=== PATIENT | female | born 1940 | race Caucasian/White ===

== ENCOUNTER 2019-11-16 10:26 | Emergency (ER) | payer OTHER ==
[~2019-11-16] VITALS: Ht 162.6 cm; Wt 69.8 kg
[~2019-11-16 10:26] MED LIST: AROMASIN25 MG OR; COLACE 100 MG100 MG OR; ENOXAPARIN40 MG/0.4 SC; FLOVENT DISKU100 MCG IH; ROXICODONE5 M1 OR; [UNRECOGNIZED DRUG - REMARK]
[2019-11-16] MEDS ORDERED: [UNRECOGNIZED DRUG - REMARK] (11:41)
[2019-11-16] MEDS ORDERED: SIMVASTATIN80 MG PO (11:42)
[2019-11-16 12:08] VITALS: BP 137/85
== END 2019-11-16 12:10 | disposition home or self-care (01) ==
LOC: M.ERS 10:26
DX: S80.02XA Contusion of left knee, initial encounter (principal); S00.81XA Abrasion of other part of head, initial encounter; J45.909 Unspecified asthma, uncomplicated; Z85.3 Personal history of malignant neoplasm of breast; Z90.12 Acquired absence of left breast and nipple; Z88.2 Allergy status to sulfonamides; W01.0XXA Fall on same level from slipping, tripping and stumbling without subsequent striking against object, initial encounter; Y93.89 Activity, other specified; Y92.89 Other specified places as the place of occurrence of the external cause; Y99.8 Other external cause status

== ENCOUNTER 2019-11-19 08:14 | Emergency (ER) | payer OTHER ==
[~2019-11-19] VITALS: Ht 162.6 cm; Wt 68.0 kg
[~2019-11-19 08:14] MED LIST changes: +SIMVASTATIN80 MG PO; +[UNRECOGNIZED DRUG - REMARK]
[2019-11-19 09:00] LABS: INFLUENZA A ANTIGEN Negative (Negative); INFLUENZA B ANTIGEN Negative (Negative)
[2019-11-19] MEDS ORDERED: IBUPROFEN 600600 M1 PO (09:26)
[2019-11-19] MEDS ORDERED: Magic Mouthwash SWISH&SPIT (09:26)
[2019-11-19 09:33] VITALS: BP 160/79
== END 2019-11-19 09:34 | disposition home or self-care (01) ==
LOC: M.ERS 08:14
PROVIDERS: Personal Emergency Response Attendant
DX: J06.9 Acute upper respiratory infection, unspecified (principal); J45.909 Unspecified asthma, uncomplicated; Z88.2 Allergy status to sulfonamides; Z85.3 Personal history of malignant neoplasm of breast

== ENCOUNTER 2020-01-02 13:39 | Inpatient (IN) | payer OTHER ==
[~2020-01-02] VITALS: Ht 162.6 cm; Wt 68.0 kg
[~2020-01-02 13:39] MED LIST changes: -FLOVENT DISKU100 MCG IH; +FLOVENT DISKU100 MCG INH; +IBUPROFEN 600600 M1 PO; +Magic Mouthwash SWISH&SPIT; -SIMVASTATIN80 MG PO; +ZOCOR 20 MG TAB20 M1 PO
[2020-01-02 13:45] VITALS: BP 154/84
[2020-01-02] MEDS ORDERED: LEVO-T50 MCG PO (14:02)
[2020-01-02] MEDS ORDERED: VITAMIN D22000 UNIT PO (14:02)
[2020-01-02] MEDS ORDERED: EVISTA60 MG PO (14:02)
[2020-01-02] MEDS ORDERED: OMEPRAZOLE 20 M20 M1 PO (14:02)
[2020-01-02] MEDS ORDERED: CALCIUM + D3 E1 EACH PO (14:03)
[2020-01-02] MEDS ORDERED: FISH OIL 1,001000 M3 PO (14:03)
[2020-01-02] MEDS ORDERED: VITAMIN D32000 UNI2 PO (14:04)
[2020-01-02] MEDS ORDERED: VITAMIN C500 M1 PO (14:04)
[2020-01-02] MEDS ORDERED: ICAPS TABLET1 EACH PO (14:04)
[2020-01-02] MEDS ORDERED: PROAIR HFA8.5 GM INH (14:04)
[2020-01-02 14:50] LABS: ABSOLUTE EOSINOPHILS 0.1 thou/uL (0.0-0.7); ABSOLUTE LYMPHOCYTES 1.1 thou/uL (0.8-5.3); ABSOLUTE MONOCYTES 0.6 thou/uL (0.0-1.2); ABSOLUTE NEUTROPHILS 5.6 thou/uL (1.6-8.1); BASOPHILS 0.4 %; EOSINOPHILS 1.2 %; HEMATOCRIT 40.4 % (37.0-47.0); LYMPHOCYTES 14.7 %; MCH 32.7 pg (26.0-34.0); MCHC 34.6 g/dL (28.0-37.0); MCV 94.5 fL (80.0-100.0); MONOCYTES 8.1 %; MPV 6.9 fl. (7.2-11.1); NUCLEATED RBCS 0 /100WBC; PLATELET COUNT* 287 thou/uL (150-400); POLYS 75.6 %; RBC 4.28 mil/uL (4.20-5.00); RDW-CV 13.3 % (10.5-14.5); WBC 7.4 thou/uL (4.0-11.0)
[2020-01-02 14:59] LABS: APTT 22.7 Seconds (25.0-31.3); PROTIME 10.7 Seconds (9.20-11.50)
[2020-01-02 15:02] LABS: URINE BILIRUBIN NEGATIVE (Negative); URINE BLOOD TRACE (Negative); URINE CLARITY CLEAR; URINE COLOR YELLOW; URINE GLUCOSE-RANDOM NEGATIVE (Negative); URINE KETONES TRACE (Negative); URINE LEUKOCYTES-REFLEX TRACE (Negative); URINE PROTEIN TRACE (Negative); URINE SPECIFIC GRAVITY >= 1.030 (1.005-1.030); URINE UROBILINOGEN 0.2 E.U./dl (0.2-1.0)
[2020-01-02 15:04] LABS: URINE NITRITE-REFLEX POSITIVE (Negative)
[2020-01-02 15:06] LABS: CALCIUM 9.4 mg/dL (8.5-10.1); CREATININE 0.9 mg/dL (0.6-1.3)
[2020-01-02 15:09] LABS: BACTERIA-REFLEX >30 Many /HPF (None Seen); SQUAMOUS 4-10 Moderate /LPF (0-3)
[2020-01-02 15:10] LABS: CRYSTALS None Seen /LPF (None Seen); HYALINE CASTS 4-10 Moderate /LPF (None Seen); MUCUS None Seen strn/LPF (None Seen); URINE RBC 0-2 Rare /HPF (0-2); URINE WBC-REFLEX 6-15 Few /HPF (0-5)
[2020-01-02 15:20] LABS: ALBUMIN 3.9 g/dL (3.4-5.0); CK-MB MASS 3.2 ng/mL (<0.5-3.6); TOTAL BILIRUBIN 0.3 mg/dL (<0.1-1.0); TOTAL PROTEIN 8.2 g/dL (6.4-8.2)
[2020-01-02 18:06] VITALS: BP 132/60
[2020-01-02 18:20] VITALS: BP 145/66
[2020-01-02 19:11] VITALS: BP 146/79
--- NOTE | 2020-01-02 22:46 | NUR ---
PATIENT ARRIVED ON DAY SHIFT AT 1830 PER REPORT FROM DAY RN. RESTING QUIETLY IN BED. IV FLUIDS INFUSING. AND DAUGHTER WERE HERE AT SHIFT CHANGE VISITING. DENIES DISCOMFORT. CALL LIGHT WITHIN REACH.
[2020-01-03 04:31] LABS: HEMATOCRIT 32.7 % (37.0-47.0); MCH 32.9 pg (26.0-34.0); MCHC 34.8 g/dL (28.0-37.0); MCV 94.4 fL (80.0-100.0); MPV 6.8 fl. (7.2-11.1); RBC 3.46 mil/uL (4.20-5.00); RDW-CV 13.3 % (10.5-14.5); WBC 7.2 thou/uL (4.0-11.0)
[2020-01-03 04:40] LABS: HEMOGLOBIN 11.4 gm/dL (12.0-15.0)
[2020-01-03 04:44] LABS: CALCIUM 7.6 mg/dL (8.5-10.1); CREATININE 0.7 mg/dL (0.6-1.3); MAGNESIUM 1.5 mg/dL (1.8-2.4); POTASSIUM 3.5 mmol/L (3.5-5.1)
--- NOTE | 2020-01-03 05:07 | NUR ---
HAD DIFFICULTY GOING TO SLEEP DUE TO THE IV IN LEFT WRIST BEING POSITIONAL AND CAUSING THE IV PUMP TO ALARM OFTEN. PLACED A NEW IV IN RIGHT HAND AND PATIENT WAS THEN ABLE TO GET TO SLEEP. INITIALLY PATIENT REFUSED TO USE BEDSIDE COMMODE. GAIT WEAK AND UNSTEADY. PERSUADED PATIENT TO USE BEDSIDE COMMODE IS THE CURRENT ORDER. HOURLY ROUNDING IN PROGRESS.
[2020-01-03 07:43] VITALS: BP 148/63
[2020-01-03 12:19] LABS: CREATININE 0.7 mg/dL (0.6-1.3); MAGNESIUM 3.4 mg/dL (1.8-2.4); POTASSIUM 3.5 mmol/L (3.5-5.1)
[2020-01-03] MEDS ORDERED: AUGMENTIN250 MG/5 M PO (14:44)
[2020-01-03 14:45] VITALS: BP 148/63
--- NOTE | 2020-01-03 15:29 | NUR ---
ASSUMED CARE OF PT AROUND 0730 THIS AM.REFER TO ASSESSMENT. PT A&OX4 THIS AM. NO CONFUSION NOTED. PT SEEN AND CLEARED BY PT/OT FOR SAFE DC HOME. PT AND FAMILY REQUESTING TO GO HOME. PHYSICIAN CONSULTED NEUROLOGY. NEUROLOGY OK WITH DC HOME. PT TO FOLLOW UP WITH OWN NEUROLOGY GROUP AND PRIMARY CARE PHYSICIAN POST DC. NO OTHER CONCERNS AT THIS TIME.
--- NOTE | 2020-01-07 13:55 | EKG ---
[place] [address] ELECTROCARDIOGRAM REPORT Name: EMMA PLATATHEODORE Thorne Room: [address] IN [facility]#: [id number] Admission: 01/02/20 Attend Phys: Constantino Motley Discharge: 01/03/20 Date of : 44 Date of Service: 01/02/20 1442 Report #: [id number] THIS REPORT FOR: cc: Emanuel Palacios MD, MD, MD [facility] ~ THIS REPORT FOR: //name// [facility] ED Test Date: 2020-01-02 Test Time: 14:42:50 Pat Name: JAMMIE PLATA Department: Room: Gender: F Sales Rep: : 1940 Requested By: David Salmon Order Number: [id number] MD: Emanuel Arriaga Measurements Intervals [place] Rate: 119 P: 54 AK: 159 QRS: -41 QRSD: 88 T: 4 QT: 313 QTc: 441 Interpretive Statements Sinus tachycardia Probable left atrial enlargement Low voltage, precordial leads Left ventricular hypertrophy Anterior Q waves, possibly due to LVH Baseline wander in lead(s) III,aVF Compared to ECG 09/22/2010 08:59:42 Left ventricular hypertrophy now present Q waves now present Electronically Signed On 01-02-2020 15:19:28 HOSPITALITY INTERN by Emanuel Arriaga [email or web address] <ELECTRONICALLY SIGNED> By: Emanuel Arriaga MD, [facility] 01/02/20 1519 1442 1442 Emanuel Arriaga MD, [facility] /EPI
== END 2020-01-03 15:25 | disposition home or self-care (01) | DRG 871 ==
LOC: M.ERS 13:39 → M.TBA-ER 15:23 → M.ORTHSURG 15:23
PROVIDERS: Emergency Medicine Emergency Medical Services; ADMIT Family Medicine
DX: A41.9 Sepsis, unspecified organism (principal); N17.0 Acute kidney failure with tubular necrosis; G93.41 Metabolic encephalopathy; N39.0 Urinary tract infection, site not specified; E87.2 Acidosis; E83.42 Hypomagnesemia; R26.89 Other abnormalities of gait and mobility; J45.909 Unspecified asthma, uncomplicated; Z79.899 Other long term (current) drug therapy; Z88.2 Allergy status to sulfonamides; Z72.89 Other problems related to lifestyle; Z85.3 Personal history of malignant neoplasm of breast; Z92.21 Personal history of antineoplastic chemotherapy; Z92.3 Personal history of irradiation

== ENCOUNTER 2020-08-25 16:01 | Emergency (ER) | payer OTHER ==
[~2020-08-25] VITALS: Ht 162.6 cm; Wt 70.3 kg
[~2020-08-25 16:01] MED LIST changes: +AUGMENTIN250 MG/5 M PO; +CALCIUM + D3 E1 EACH PO; +EVISTA60 MG PO; +FISH OIL 1,001000 M3 PO; +ICAPS TABLET1 EACH PO; +LEVO-T50 MCG PO; +OMEPRAZOLE 20 M20 M1 PO; +PROAIR HFA8.5 GM INH; +VITAMIN C500 M1 PO; +VITAMIN D22000 UNIT PO; +VITAMIN D32000 UNI2 PO
[2020-08-25] MEDS ORDERED: NORCO 5-325 TA1 EAC2 PO (17:32)
[2020-08-25] MEDS ORDERED: IBUPROFEN 800800 M1 PO (17:32)
[2020-08-25 17:52] VITALS: BP 173/88
== END 2020-08-25 17:55 | disposition home or self-care (01) ==
LOC: M.ERS 16:01
DX: S22.42XA Multiple fractures of ribs, left side, initial encounter for closed fracture (principal); J45.909 Unspecified asthma, uncomplicated; Z79.899 Other long term (current) drug therapy; Z88.2 Allergy status to sulfonamides; W18.39XA Other fall on same level, initial encounter; Y93.89 Activity, other specified; Y92.89 Other specified places as the place of occurrence of the external cause; Y99.8 Other external cause status

== ENCOUNTER 2021-04-05 14:04 | Observation (INO) | payer OTHER ==
[~2021-04-05] VITALS: Ht 162.6 cm; Wt 71.8 kg
--- NOTE | ~2021-04-05 | EEG ---
[address] [address] EEG STUDY REPORT Name: JAMMIE PLATA [address] [id number] Admission: 04/05/21 Attend Phys: Suzi Wilson Discharge: Date of : 44 Report #: [id number] THIS REPORT FOR: cc: Berenice Murrieta Jennifer Ann RNP Khosla, Parveen K. MD ~ DOC #: [id number] Keshav Haji MD DATE OF SERVICE: 04/06/2021 This patient had an episode of syncope. EEG was done by placing the electrode by standard 10-20 system of electrode placement. Both referential and sequential montages were used for recording. Background activity in this patient about 8 Hz and 15 microvolt, it is a low voltage activity, which is intermixed with ____. Photic stimulation is unremarkable. The patient went to sleep that is associated with bilateral slowing and vertex sharp waves. Throughout the record, no active epileptiform activity was noticed. IMPRESSION: This patient's EEG is intermixed with theta range slowing on both sides. That is a nonspecific finding which can occur with encephalopathy, effect of psychotropic medication, dementia, etc. Clinical correlation is recommended. Keshav Haji MD PK/IGOR/JAMIE By: [id number] Haji MD /tacho
--- NOTE | ~2021-04-05 | CON ---
[address] [address] CONSULTATION Name: JAMMIE PLATA Room: [address] Polly Palomo#: [id number] Admission: 04/05/21 Attend Phys: Suzi Wilson Discharge: Date of : 44 Report #: [id number] THIS REPORT FOR: cc: Berenice Murrieta Jennifer Ann RNP Khosla, Parveen K. MD ~ DOC #: [id number] Keshav Haji MD DATE OF CONSULTATION: 04/06/2021 HISTORY OF PRESENT ILLNESS: This is a 80-year-old female patient who was evaluated by me for any neurological etiology for the patient's syncope. The patient said she was sitting. She was having some bowel problems for some time. In fact, she said she underwent EGD and colonoscopy because of those bowel symptoms and she passed out. This lasted just for a few seconds. There were some jerking associated with it. She did not have any paralysis after this happened. She feels back to her baseline. REVIEW OF SYSTEMS: A 14-point review of system is positive for multiple problems which are predominantly GI. She denies any prior history of stroke. She is not complaining of any eye, ENT, cardiac, respiratory, GI, , musculoskeletal, constitutional, dermatological, hematological, psychiatric, throat or allergic symptom associated with present symptomatology. PAST MEDICAL HISTORY: Negative for these kind of episodes. FAMILY HISTORY: Unremarkable. There is no epilepsy in the family. SOCIAL HISTORY: She drinks 1-2 alcoholic drink a day. She does not smoke. PHYSICAL EXAMINATION: She is alert, responsive, able to follow simple and complex commands. Her speech, concentration, fund of knowledge and memory is at her baseline. Cranial nerve examination II-XII is unremarkable. She had some back issues in the past, but allowing for that it does not look like neuromuscular examination for motor, sensory, reflex and tone shows any asymmetry. There is no cerebellar sign. There is no papilledema. There is no carotid bruit. She is a well-built individual. She does not have any dysmorphic features of face. Hearing and vision looks adequate. Pulses in the upper extremities are nicely palpable. Cardiac examinations appear noncontributory. Respiratory examination does not show any respiratory difficulty or rhonchi. Blood pressure is 145/73, respirations 18, pulse is 95, temperature is 100.2, which is slightly elevated, but that is the first reading here. She has no thyroid mass and there is no carotid bruit. IMPRESSION: The episode is most likely a vasovagal spell. [place] [address] CONSULTATION Name: SHERLYNEMMA MARIEETHEODORE Thorne Room: [address] M.RDaniel#: [id number] Admission: 04/05/21 Attend Phys: Suzi Wilson Discharge: Date of : 44 Report #: [id number] gastrointestinal symptoms and it occurred then. Her EEG is unremarkable. Her BUN and creatinine is good and has always been good. I will get a CT angiogram done mainly to look for any vertebral artery problems, but main workup and management is going to be by Cardiology who is on the case. Thank you very much for this referral. Keshav Haji MD PK/PAR By: [id number] Haji MD /nt
[~2021-04-05 14:04] MED LIST changes: +IBUPROFEN 800800 M1 PO; +NORCO 5-325 TA1 EAC2 PO
[2021-04-05 14:12] VITALS: BP 131/87
[2021-04-05 14:38] LABS: ABSOLUTE BASOPHILS 0.1 thou/uL (0.0-0.2); ABSOLUTE EOSINOPHILS 0.1 thou/uL (0.0-0.7); ABSOLUTE MONOCYTES 0.5 thou/uL (0.0-1.2); ABSOLUTE NEUTROPHILS 6.6 thou/uL (1.6-8.1); BASOPHILS 0.7 %; EOSINOPHILS 1.2 %; HEMATOCRIT 40.3 % (37.0-47.0); HEMOGLOBIN 13.8 gm/dL (12.0-15.0); LYMPHOCYTES 12.1 %; MCH 32.7 pg (26.0-34.0); MCHC 34.3 g/dL (28.0-37.0); MCV 95.3 fL (80.0-100.0); MONOCYTES 6.2 %; MPV 6.5 fl. (7.2-11.1); NUCLEATED RBCS 0 /100WBC; PLATELET COUNT* 295 thou/uL (150-400); POLYS 79.8 %; RBC 4.22 mil/uL (4.20-5.00); RDW-CV 13.9 % (10.5-14.5); WBC 8.3 thou/uL (4.0-11.0)
[2021-04-05 14:45] LABS: CALCIUM 9.6 mg/dL (8.5-10.1); CREATININE 0.7 mg/dL (0.6-1.3); POTASSIUM 3.8 mmol/L (3.5-5.1)
[2021-04-05 14:48] LABS: APTT 23.1 Seconds (25.0-31.3); PROTIME 10.9 Seconds (9.20-11.50)
[2021-04-05 14:49] LABS: ALBUMIN 4.2 g/dL (3.4-5.0); TOTAL BILIRUBIN 0.5 mg/dL (<0.1-1.0); TOTAL PROTEIN 8.1 g/dL (6.4-8.2)
--- NOTE | 2021-04-05 15:47 | EKG ---
[place] [address] ELECTROCARDIOGRAM REPORT Name: JAMMIE PLATA Room: [address]R.#: [id number] Admission: 04/05/21 Attend Phys: Tyson Hemphill Discharge: Date of : 44 Date of Service: 04/05/21 1427 Report #: [id number] THIS REPORT FOR: //name// [facility] ED Test Date: 2021-04-05 Test Time: 14:27:19 Pat Name: JAMMIE PLATA Department: Room: [facility] Gender: F Neuropsychology Director: CCD : 1940 Requested By: Mendel Byers Order Number: [id number] MD: Maurice Small Measurements Intervals [place] Rate: 91 P: 44 OR: 165 QRS: -47 QRSD: 91 T: 21 QT: 370 QTc: 456 Interpretive Statements Sinus rhythm Inferior infarct, old Consider anterior infarct Compared to ECG 01/02/2020 14:42:50 Myocardial infarct finding now present Sinus tachycardia no longer present Left ventricular hypertrophy no longer present Q waves no longer present Electronically Signed On 04-05-2021 15:46:57 CDT by Maurice Small [email or web address] <ELECTRONICALLY SIGNED> By: Maurice Small MD, [facility] 04/05/21 1546 1427 1427 Maurice Small MD, [facility] /EPI
[2021-04-05 15:52] LABS: URINE BILIRUBIN NEGATIVE (Negative); URINE BLOOD NEGATIVE (Negative); URINE CLARITY CLEAR; URINE COLOR YELLOW; URINE GLUCOSE-RANDOM NEGATIVE (Negative); URINE KETONES NEGATIVE (Negative); URINE NITRITE-REFLEX NEGATIVE (Negative); URINE PROTEIN NEGATIVE (Negative); URINE SPECIFIC GRAVITY <= 1.005 (1.005-1.030); URINE UROBILINOGEN 0.2 E.U./dl (0.2-1.0)
[2021-04-05] MEDS ORDERED: EXCEDRIN CAPLE1 EACH PO (15:53)
[2021-04-05 15:58] LABS: URINE LEUKOCYTES-REFLEX 2+ (Negative)
[2021-04-05 15:59] LABS: CASTS None Seen /LPF (None Seen); CRYSTALS None Seen /LPF (None Seen); SQUAMOUS 0-3 Few /LPF (0-3); URINE RBC 0-2 Rare /HPF (0-2); URINE WBC-REFLEX 0-5 Rare /HPF (0-5)
--- NOTE | 2021-04-05 18:20 | NUR ---
admit from er to via cart 1 assist to bed telephone report given prior to arrival patient oriented to and call light
[2021-04-05 18:22] VITALS: BP 132/55
[2021-04-05 18:25] VITALS: BP 137/64
[2021-04-05 20:29] VITALS: BP 127/55
[2021-04-06 00:39] VITALS: BP 146/56
[2021-04-06] MEDS ORDERED: ATORVASTATIN CA80 MG PO (02:48)
[2021-04-06] MEDS ORDERED: CARVEDILOL12.5 MG PO (02:49)
[2021-04-06] MEDS ORDERED: ZETIA10 MG PO (02:49)
[2021-04-06 04:00] VITALS: BP 140/48
--- NOTE | 2021-04-06 05:28 | NUR ---
PT ADMITTED TO ROOM 211 DURING THIS SHIFT; VSS, A+OX4, ROOM AIR, UP SBA TO COMODE, REPORTS PAIN. SHE IS ABLE TO COMMUNICATE HER NEEDS TO STAFF EFFECTIVELY. CURRENT PAIN MEDICATION REGIMEN HAS BEEN ADEQUATE FOR CONTROLLING HER PAIN UP TO THIS TIME.
[2021-04-06 06:03] LABS: HEMOGLOBIN ND gm/dL (12.0-15.0); RBC ND mil/uL (4.20-5.00); WBC ND thou/uL (4.0-11.0)
[2021-04-06 06:04] LABS: CALCIUM 8.5 mg/dL (8.5-10.1); CREATININE 0.6 mg/dL (0.6-1.3); POTASSIUM 3.2 mmol/L (3.5-5.1)
[2021-04-06 06:04] LABS: HEMATOCRIT ND % (37.0-47.0); MCV ND fL (80.0-100.0)
[2021-04-06 06:05] LABS: MCH ND pg (26.0-34.0); MCHC ND g/dL (28.0-37.0)
[2021-04-06 06:06] LABS: PLATELET COUNT* ND thou/uL (150-400); RDW-CV ND % (10.5-14.5)
[2021-04-06 06:07] LABS: MPV ND fl. (7.2-11.1)
[2021-04-06 06:10] LABS: HEMATOCRIT 35.7 % (37.0-47.0); HEMOGLOBIN 12.3 gm/dL (12.0-15.0); MCH 33.1 pg (26.0-34.0); MCHC 34.4 g/dL (28.0-37.0); MCV 96.1 fL (80.0-100.0); MPV 6.4 fl. (7.2-11.1); RBC 3.72 mil/uL (4.20-5.00); RDW-CV 13.7 % (10.5-14.5); WBC 5.1 thou/uL (4.0-11.0)
[2021-04-06 09:40] VITALS: BP 127/63
--- NOTE | 2021-04-06 12:38 | NUR ---
Pt is A&O. Resides at home with . Independent. Pt has a walker that she can use if needed. Hx of HH. No hx of SNF. Goal is home at dc, anticipate dc tomorrow. No needs anticipated.
--- NOTE | 2021-04-06 13:44 | 2DMMODE ---
[place] [address] 2 D/M-MODE ECHOCARDIOGRAM Name: BABITA PLATASharona Thorne Room: [address] Polly Palomo#: [id number] Admission: 04/05/21 Attend Phys: Tyson Hemphill Discharge: Date of : 44 Date of Service: 04/06/21 1344 Report #: [id number] THIS REPORT FOR: cc: Berenice Murrieta Jennifer Ann RNP Holkins, John M. MD MERGED WITH [facility] ~ APPROVED REPORT Study performed: 04/06/2021 10:45:53 EXAM: Comprehensive 2D, Doppler, and color-flow Echocardiogram Patient Location: Bedside BSA: 1.76 HR: 97 bpm BP: 140/48 mmHg Other Information Study Quality: Adequate Indications Syncope 2D Dimensions IVSd: 14.75 (7-11mm) LVOT Diam: 17.92 (18-24mm) LVDd: 42.56 mm PWd: 7.70 (7-11mm) Ascending Ao: 28.16 (22-36mm) LVDs: 30.62 (25-40mm) Aortic Root: 32.56 mm Aortic Valve AoV Peak Salvador.: 0.86 m/s AO Peak Gr.: 2.98 mmHg LVOT Max P.02 mmHg AO Mean Gr.: 1.82 mmHg LVOT Mean P.16 mmHg LVOT Max V: 0.71 m/s AO V2 VTI: 16.40 cm LVOT Mean V: 0.50 m/s ANIA (VTI): 2.11 cm2 LVOT V1 VTI: 13.72 cm Mitral Valve E/A Ratio: 0.58 MV Decel. Time: 169.90 ms MV E Max Salvador.: 0.54 m/s MV PHT: 49.27 ms MVA (PHT): 4.47 [place] [address] 2 D/M-MODE ECHOCARDIOGRAM Name: EMMA PLATATHEODORE Thorne Room: [address] M.R.#: [id number] Admission: 04/05/21 Attend Phys: Tyson Hemphill Discharge: Date of : 44 Date of Service: 04/06/21 1344 Report #: [id number] TDI E/Lateral E': 5.40 E/Medial E': 7.71 Medial E' Salvador.: 0.07 m/s Lateral E' Salvador.: 0.10 m/s Pulmonary Valve PV Peak Salvador.: 0.96 m/s PV Peak Gr.: 3.69 mmHg Tricuspid Valve RAP Estimate: 15.00 mmHg TR Peak Gr.: 29.71 mmHg RVSP: 44.71 mmHg PA Pressure: 44.71 mmHg Left Ventricle The left ventricle is normal size. There is normal LV segmental wall motion. There is normal left ventricular wall thickness. Left ventricular systolic function is normal. The left ventricular ejection fraction is within the normal range. LVEF is 60%. Grade I - abnormal relaxation pattern. Right Ventricle The right ventricle is normal size. The right ventricular systolic function is normal. Atria The left atrium size is normal. The right atrium size is normal. Aortic Valve The aortic valve is normal in structure. No aortic regurgitation is present. There is no aortic valvular stenosis. Mitral Valve The mitral valve is normal in structure. Trace mitral regurgitation. No evidence of mitral valve stenosis. Tricuspid Valve The tricuspid valve is normal in structure. Mild tricuspid regurgitation. Pulmonic Valve The pulmonary valve is normal in structure. There is no pulmonic valvular regurgitation[place] [address] 2 D/M-MODE ECHOCARDIOGRAM Name: JAMMIE PLATA Room: [address]#: [id number] Admission: 04/05/21 Attend Phys: Tyson Hemphill Discharge: Date of : 44 Date of Service: 04/06/21 1344 Report #: [id number] The aortic root is normal in size. The IVC is dilated. Pericardium There is no pericardial effusion. <Conclusion> The left ventricle is normal size. There is normal left ventricular wall thickness. Left ventricular systolic function is normal. The left ventricular ejection fraction is within the normal range. LVEF is 60%. Grade I - abnormal relaxation pattern. The right ventricle is normal size. The left atrium size is normal. The aortic valve is normal in structure. The mitral valve is normal in structure. Trace mitral regurgitation. The tricuspid valve is normal in structure. Mild tricuspid regurgitation. The IVC is dilated. There is no pericardial effusion. There is normal LV segmental wall motion. <ELECTRONICALLY SIGNED> By: David Delong MD, [facility] 04/06/21 1344 1344 1344 David Delong MD, FACC /INF
[2021-04-06 16:27] VITALS: BP 145/73
--- NOTE | 2021-04-06 18:15 | NUR ---
PATIENT HAS REMAINED A&OX4, PLEASANT AND COOPERATIVE WITH CARES. FLUIDS D/C'D ORDERED. PATIENT C/O CHRONIC BILATERAL HIP PAIN, WHICH IS RESOLVED WITH APAP. PER CARDIO, PATIENT MAY GO HOME WITH HEART MONITOR AT D/C. PATIENT VOICES THAT SHE WOULD LIKE TO GO HOME AND STATES SHE HAS A COLONOSCOPY SCHEDULED WITHIN THE NEXT WEEK OR SO. PATIENT IS UP STANDBY ASSIST. CALL LIGHT AND FREQUENTLY USED ITEMS WITHIN REACH.
[2021-04-06 19:45] VITALS: BP 136/65
[2021-04-07] VITALS: BP 125/66
--- NOTE | 2021-04-07 00:49 | NUR ---
ASSUMED CARE OF PT AT 1900. PT IS ALERT AND ORIENTED. VSS. PERRLA. NO COMPLAINTS OF SYNCOPE. PT IS ON ROOM AIR. PT IS IN SINUS RYTHM ON THE TELEMETRY. PT IS RESTING COMFORTABLY IN BED. RESPIRATIONS ARE EVEN AND NONLABORED. WILL CONTINUE TO MONITOR PT.
[2021-04-07 04:00] VITALS: BP 151/71
[2021-04-07 08:00] VITALS: BP 146/70
[2021-04-07] MEDS ORDERED: CEPHALEXIN500 MG PO (08:29)
[2021-04-07 12:57] VITALS: BP 146/70
--- NOTE | 2021-04-07 15:50 | NUR ---
PT DISCHARGED HOME WITH ALL BELONGINGS ACCOMPANIED BY HER . SALINE LOCK REMOVED HUB INTACT, SPOUTING INSTALLER PLACED ON PT. SHE WILL FOLLOW UP WITH CARDIOLOGY IN MAY 12, 2021. PT HAS GOOD UNDERSTANDING OF DISCHARGE INSTRUCTIONS. PT DENIES PAIN ON DISCHARGE.
== END 2021-04-07 16:00 | disposition home or self-care (01) ==
LOC: M.ERS 14:04 → M.2W 15:17 → M.TBA-ER 15:17 → M.2W 18:18
PROVIDERS: Family Medicine; ADMIT Internal Medicine; ATTEND Internal Medicine
DX: R55 Syncope and collapse (principal); Z20.822 Contact with and (suspected) exposure to COVID-19; R11.2 Nausea with vomiting, unspecified; R00.0 Tachycardia, unspecified; R53.1 Weakness; N39.0 Urinary tract infection, site not specified; J45.909 Unspecified asthma, uncomplicated; Z85.3 Personal history of malignant neoplasm of breast; Z79.899 Other long term (current) drug therapy